=== PATIENT | female | born 1955 | race Caucasian/White ===

== ENCOUNTER → 2021-05-01 17:13 | Outpatient (CLI) | payer BC, SELFPAY ==
--- NOTE | 2021-05-01 17:22 | CT_ITS ---
STUDY: CT MAXILLOFACIAL SINUSES REASON FOR EXAM: Female, 66 years old. SINUSITIS left-sided sinus symptoms RADIATION DOSAGE (If Supplied By Facility): CTDIvol = ( 33.06 ) mGy, DLP = ( 871.04 ) mGycm TECHNIQUE: The patient was scanned in a multi detector CT scanner. High resolution axial imaging was performed without the administration of intravenous contrast material. Sagittal and coronal images were reconstructed. Individualized dose optimization techniques were used for this CT. COMPARISON: None. FINDINGS: Left maxillary sinus is completely opacified and mildly atelectatic with osteneogenesis . There is fluid/mucosal extension into the left nasal cavity with partially calcified polypoid-like appearance, contacting the turbinates. Left semilunar hiatus is occluded. There is no extra sinus extension of disease. Remainder the paranasal sinuses are clear. Orbits and contents are normal. Skull base is intact. Nasopharynx is clear. There is post dental loss left maxillary third molar unhealed apical lucencies and focal erosion, possibly infected due to destruction of labial portion of the cortex. 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 ENT referral advised. Left maxillary molar post dental loss focal destruction, possibly local infection. Dental referral advised. Electronically Signed: Farzana Tran MD at 14:15 EST Tel , Service support ,
== END ==
PROVIDERS: PCP Internal Medicine; Visit Provider Otolaryngology
DX: J32.0 Chronic maxillary sinusitis (principal); J33.9 Nasal polyp, unspecified
CPT/HCPCS: 70486

== ENCOUNTER 2021-07-15 11:23 | Day surgery (SDC) | payer BC, SELFPAY ==
[2021-07-15] VITALS (7 sets, daily range): BP systolic 106–129; BP diastolic 60–80; PULSE 55–71; RESP 16; TEMP 36.6–37.7; O2SAT 93–100; BMI 23.8
--- NOTE | 2021-07-15 | ETH_PTH ---
PATIENT: MEG BRANDT [place] [facility] [place] U#:[id number] AGE/SX: 66/F ROOM: RE07/15/[address]: Dr. Shubham Ponce MD : 1955 BED: DIS: 07/15/2021 SPEC #: [id number] RECD: 07/15/21 15:17 STATUS: DEBO AURELIA #: [id number] STEPHANIE: 07/15/21 00:[address]: Shubham Ponce DEPT: SURGICAL PATHOLOGY RECD BY: Karlos Helm ENTERED: 07/16/21 11:00 SP TYPE: ETH TISS OTHR DR: Dr. Riya Yu MD Tissues: A - Ethmoid sinus, NOS B - Ethmoid sinus, NOS Procedures: Decalcification bone/plaque Special Stain Group I Surgery Specimen Level IV GMS Stain (control) HEADER OPERATION: Maxillary antrostomy with tissue removal, left total ethmoidectomy PRE-OP DIAGNOSIS: Nasal congestion, polyp of nasal cavity, chronic sinusitis TISSUE SUBMITTED: A ? Left sinus contents in saline, B ? Left sinus tissue MICROSCOPIC DIAGNOSIS A. Left sinus contents: Fragments of fungal organisms with focal calcifications and neutrophils. See comment. B. Left sinus tissue: Fragments of respiratory mucosa with chronic inflammation and bone. SJ:rg 07/20/2021 COMMENT A. Special stain for fungi is positive for organisms consistent with aspergillus species; matched control is appropriate. MICROSCOPIC DESCRIPTION Slides are reviewed. GROSS DESCRIPTION A - Received fresh and then postfixed in formalin labeled with the patient's name is a specimen designated left sinus contents. The specimen consists of multiple irregular fragments of brownish soft tissue mixed with fragments of calcified material that in aggregate measure 3 x 2.5 x 0.3 cm. The entire specimen is submitted in one cassette after decalcification. B - Received in fixative is one container labeled with the patient's name and designated left sinus tissue. The specimen consists of multiple irregular fragments of lezama soft tissue mixed with fragment of bone that in aggregate measure 2.5 x 1.5 x 0.2 cm. The entire specimen is submitted in one cassette after decalcification. / SJ:riki 07/16/2021 TC:3 CPT: 09254 x2, 61860 x2, 85342
--- NOTE | 2021-07-15 11:30 | EKG12_ITS ---
Test Reason : PREOP Blood Pressure : / mmHG Vent. Rate : 067 BPM Atrial Rate : 067 BPM P-R Int : 126 ms QRS Dur : 072 ms QT Int : 396 ms P-R-T Axes : 073 040 064 degrees QTc Int : 418 ms Sinus rhythm with occasional Premature ventricular complexes Otherwise normal ECG Confirmed by ZARIA MAN, KIM ([id number]), supervising editor news reel KELL MENDOZA ([id number]) on 07/20/2021 9:40:03 AM Referred By: Shubham Ponce Confirmed By:KIM ENCISO MD
[2021-07-15] MEDS: Lactated Ringers 1,000 ML 15 ML IV (12:03)
[2021-07-15] MEDS: Oxymetazoline 0.05% 1 SPRAY SPRAY.BTL 3 SPRAY NASAL (12:03)
--- NOTE | 2021-07-15 13:08 | PCM.DC.SUM ---
Providers Primary Care Physician: Dr. Riya Yu MD Reason For Visit: MAXILLARY ANTROSTOMY, LT TOTAL ETHMOID Medications at Discharge Home Medications cholecalciferol (vitamin D3) [Vitamin D3] 125 mcg PO DAILY 05/05/21 levothyroxine [Synthroid] 150 mcg PO DAILY 05/05/21 vitamin [id number] acid 1 tab PO DAILY 05/05/21 Weight / BMI Weight Weight: 69 kg Body Mass Index (BMI) 23.8 D/C Instructions Discharge Diet: No restrictions Additional Activity Instructions: no noseblowing Start saline irrigation (4x/day) on 07/16/20 Please Follow Up With: Shubham Ponce MD Meaningful Use Info Meaningful Use Diagnoses (Choose all that apply): None applicable Discharge Plan Admission Attending Provider: Shubham Ponce Primary Care Provider: Riya Yu Discharge Orders/Prescriptions Prescriptions: No Action levothyroxine [Synthroid] 150 mcg Tablet 150 mcg PO DAILY RF: 0 vitamin I37-axpqg acid 0.5-1 mg Tablet 1 tab PO DAILY RF: 0 cholecalciferol (vitamin D3) [Vitamin D3] 125 mcg (5,000 unit) Tablet 125 mcg PO DAILY RF: 0
[2021-07-15] MEDS: Lidocaine 1%/Epi 1:200 (30ml) 30 ML AMPUL (14:00)
--- NOTE | 2021-07-15 14:17 | PCM.OPRPT ---
Report of Operation Date of Procedure: 07/15/21 Pre-Operative Diagnosis: chronic left sinusitis Post-Operative Diagnosis: same Surgery/Procedure Performed:: left maxillary antrostomy with tissue removal left total ethmoidectomy use of navigation Surgeon: Shubham Ponce Type of Anesthesia: General Anesthesiologist: Uriel Stroud Estimated Blood Loss (mL): minimal Description of Procedure: The patient was taken to the operating room on 07/15/2021. The patient was placed in the supine position on the operating table. The patient was given sufficient general endotracheal anesthesia. The head of bed was elevated 30 degrees. The navigation system was placed and verified per protocol and found to be accurate. 0 , 30 and 70 degree rigid nasal endoscopes were used throughout the entire case. The left middle turbinate, uncinate process were injected with 1% lidocaine with epinephrine. The left middle turbinate was medialized with a Girdletree elevator. A large fungus ball was removed from the middle meatus using forceps and suction. The uncinate process was taken down using a sinus shaver. In doing so, the maxillary antrostomy was created. A backbiter was also used to create the antrostomy. Tissue was removed from the maxillary sinus using a microdebrider with a 30 and70 degree rigid nasal endoscope for visualization. I then irrigated fungal elements and pus from the maxillary sinus and the irrigant was suctioned from the nasopharynx. I then rechecked the maxillary sinus with a 70 degree scope to make sure that there were no further fungal elements. The ethmoid bulla was opened with a small curette. Anterior posterior ethmoidectomy were then carried out using a sinus shaver curette and Blaamilcarley Charles forceps. Ethmoid cells were verified for relation to the skull base and orbit prior to being entered with the navigation system. Hemostasis was then achieved using Afrin pledgets and suction cautery. The pledgets were then removed and Anushka powder was applied for absolute hemostasis. The procedure was then terminated. The patient was then awoken and brought to the recovery room in stable condition blood loss less than 30 cc replacement none. Sponge, needle, instrument count were correct at the end of the procedure.
[2021-07-15] MEDS: HYDROcodone Bitartrate/Apap 5/325 Tablet PO (15:51)
== END 2021-07-15 23:59 | disposition home or self-care (01) ==
LOC: SDC 11:24 → AC 11:28
PROVIDERS: PCP Internal Medicine; Referring Provider Otolaryngology; Visit Provider Otolaryngology
PROC: (CPT 31267; principal; 2021-07-15 12:30)
DX: J32.8 Other chronic sinusitis (principal); J33.0 Polyp of nasal cavity; E07.9 Disorder of thyroid, unspecified; Z79.899 Other long term (current) drug therapy; Z86.16 Personal history of COVID-19
CPT/HCPCS: 31267; 31255; 00160; 88305; 88311; 88312; 93005; J7120; J2405